=== PATIENT | male | born 1960 | race Two or more races ===

== ENCOUNTER 2025-01-05 15:43 | Emergency (ER) | payer MEDICAID, SELFPAY ==
[2025-01-05 15:44] VITALS: BMI 28.7
--- NOTE | 2025-01-05 15:48 | EKG_ITS ---
[facility] Test Date: 2025-01-05 Pat Name: KUN NIX Department: Room: - Gender: Male [employer] Person: : 1960 Requested By: Syd Headley (JONATHAN) Order Number: [id number] Reading MD: Syd Headley ([employer]) Measurements Intervals [place] Rate: 52 P: 9 NJ: 200 QRS: 19 QRSD: 97 T: 48 QT: 416 QTc: 387 Interpretive Statements SINUS BRADYCARDIA No previous ECG available for comparison /store/S0/[id number].pdf
[2025-01-05 15:53] VITALS: BP 128/71; PULSE 57; RESP 18; TEMP 36.5; O2SAT 97
--- NOTE | 2025-01-05 15:59 | XR_ITS ---
Examination: PA lateral chest 2 views Technique: Upright PA lateral chest 2 views Date and time: January 05, 2025 1607 hrs. Indications: Weakness dizziness today. Findings: Normal heart size. No aspiration pneumonia. Moderate osteopenia Impression: Negative for aspiration pneumonia
--- NOTE | 2025-01-05 15:59 | XR_ITS ---
Examination: CT brain head without contrast. 2-D sagittal coronal reconstructions Date and time of exam:January 05, 2025 1655 hrs. Indications: Headache nausea vomiting lethargy today CTDI: vol (mGy):51.7 DLP: (mGycm):1060 Technique: Multiple CT axial sections of the brain have been obtained, 5 mm slice thickness. Contrast has not been administered. 2-D sagittal, coronal reconstructions have been obtained Low dose protocols were performed. One or more of the following dose reduction techniques were used; automated exposure control, adjustment of the mA and/or KV according to patient size, use of iterative reconstruction technique. Findings: No significant ventricular enlargement. Intra-axial or extra-axial hemorrhage density is not seen. No mass effect or midline shift Basal cisterns are not remarkable. Fourth ventricle is midline. Cranial vault intact. Impression: Negative for acute hemorrhage, mass effect or midline shift Advise clinical correlation and follow-up accordingly
--- NOTE | 2025-01-05 16:09 | PD.EDRME ---
Rapid Medical Screening Exam RME Arrival date/time: 01/05/25 15:43 64-year-old male presents to the emergency department today for complaints of dizziness nausea and abdominal pain today Chief Complaint: Dizziness Vital signs: Vital Signs Temperature 97.7 F 01/05/25 15:53 Pulse Rate 57 L 01/05/25 15:53 Respiratory Rate 18 01/05/25 15:53 Blood Pressure 128/71 01/05/25 15:53 Pulse Oximetry (%) 97 01/05/25 15:53 Oxygen Delivery Method Room Air 01/05/25 15:53
[2025-01-05 16:37] LABS: Basophils # (Auto) 0.1 Thou/mm3 (0.0-0.2); Basophils % (Auto) 1 % (0-2.5); Eosinophils # (Auto) 0.2 Thou/mm3 (0.0-0.5); Eosinophils % (Auto) 2 % (0-10); Hematocrit 39.2 % (41.0-53.0); Hemoglobin 13.8 g/dL (13.5-16.0); Immature Granulocytes % (Auto) 1 % (0-0); Immature Granulocytes Auto 0.09 Thou/mm3 (0.00-0.00); Lymphocytes # (Auto) 2.4 Thou/mm3 (1.0-4.8); Lymphocytes % (Auto) 29 % (10-50); Mean Corpuscular HGB Conc 35.2 g/dl (31.0-37.0); Mean Corpuscular Hemoglobin 31.2 pg (25.0-35.0); Mean Corpuscular Volume 89 fL (80-100); Monocytes # (Auto) 0.6 Thou/mm3 (0.0-0.8); Monocytes % (Auto) 8 % (0-12); Neutrophils % (Auto) 60 % (37-80); Nucleated Red Blood Cell % 0 /100 WBC (0); Platelet Count 226 Thou/mm3 (140-440); RDW Standard Deviation 43.3 fL (35.1-43.9); Red Blood Count 4.42 Miln/mm3 (4.50-5.90); White Blood Count 8.3 Thou/mm3 (3.8-10.6)
[2025-01-05 16:45] LABS: Collection Type, Urine Clean Catch; Squamous Epithelial Cell,Urine 0 /hpf (0-5)
[2025-01-05 16:58] LABS: Amphetamine/Methamp Scrn,U Negative (Negative); Barbiturate Screen,Urine Negative (Negative); Benzodiazepines Screen,Urine Negative (Negative); Benzoylecgonine Screen, Ur Negative (Negative); Fentanyl Screen,Urine Negative (Negative); Opiate Screen,Urine Negative (Negative); THC Screen,Urine Negative (Negative)
[2025-01-05 17:02] LABS: Amorphous Crystals,Urine Present (Absent); Bilirubin,Urine Negative (Negative); Blood,Urine Negative (Negative); Color,Urine Lt-Yellow (Lt Yel-Yel); Glucose, Urine Negative (Negative); Ketones,Urine Negative (Negative); Leukocyte Esterase,Urine Positive (Negative); Nitrite,Urine Negative (Negative); Protein,Urine Negative (Neg - Trace); RBC,Urine 1 /hpf (0-3); Specific Gravity,Urine 1.019 (1.001-1.035); Urobilinogen,Urine Negative mg/dL (0.0-1.0); WBC,Urine 5 /hpf (0-5)
[2025-01-05 17:05] LABS: Clarity,Urine Hazy (Clear/Hazy)
[2025-01-05 17:06] LABS: Partial Thromboplastin Time 26.5 Seconds (22.0-36.0); Prothrombin Time 11.2 Seconds (9.0-12.2)
[2025-01-05 17:07] LABS: B-Type Natriuretic Peptide 40 pg/mL (0-100)
[2025-01-05 17:09] LABS: Alanine Aminotransferase 16 U/L (10-49); Albumin, Serum 4.6 gm/dL (3.4-4.8); Albumin/Globulin Ratio 1.8 (1.2-2.2); Alkaline Phosphatase 92 U/L (46-116); Anion Gap 10 (7-16); BUN/Creatinine Ratio 16 Ratio (12-20); Blood Urea Nitrogen 13 mg/dL (9-23); Calcium 9.3 mg/dL (8.3-10.6); Calcium (Corrected) 9.3 mg/dL (8.5-10.1); Carbon Dioxide 25.8 mMol/L (20.0-31.0); Chloride 107 mMol/L (98-107); Creatinine (Component) 0.8 mg/dL (0.6-1.3); Estimated Creatinine Clearance 95.6 mL/min (>60); Globulin 2.5 gm/dL (2.3-3.5); Glucose 91 mg/dL (74-106); Magnesium 2.3 mg/dL (1.6-2.6); Osmolality,Calculated 285 (275-295); Potassium 3.9 mMol/L (3.4-5.1); Sodium 143 mMol/L (136-145); Total Protein 7.1 gm/dL (5.7-8.2); Troponin I < 0.002 ng/mL (0.0-0.045); eGFR > 60 See Note
--- NOTE | 2025-01-05 18:34 | PD.EDDIZZY ---
ED Dizzyness RME/HPI General Chief Complaint: Dizziness Stated Complaint: DIZZY/WEAK/ABD PAIN Time Seen by Provider: 01/05/25 18:13 Arrival date/time: 01/05/25 15:43 RME / HPI RME / HPI Narrative: 01/05/25 15:43 64-year-old male presents to the emergency department today for complaints of dizziness nausea and abdominal pain today This section includes all my notes and documentations, including HPI, PE, and ED course. Christiano Couch MD HPI: 64 y/o male here with dizziness x approximately 10 hours. Denies room spinning, but describes moving sensation as closer inebriation and being seasick. No chest pain. No other complaints. ROS: All negative except as documented in HPI. Physical Exam: General: Alert and oriented. No acute distress when remaining still. Eyes: Conjunctivae and lids clear. ENT: No nasal congestion. Neck: Supple. Heart: RRR. Lungs: No respiratory distress. Good air movement. No rhonchi, wheezing, rales. Skin: Warm and dry. Neuro: Alert and oriented X 3. I reviewed all diagnostic test results: My interpretation of the EKG is: Sinus rhythm with no acute ST?T changes. My interpretation of the chest x-ray is: NAD. My review of the Head/Brain CT report is: NAD. Blood tests and urine tests unremarkable. At this point, diagnoses include: Vertigo Treatment here included: Antivert, Zofran, Transderm-Scop Patch. Recommended outpatient care. Based on my best medical judgment, made decision no further evaluation or treatment indicated at this time. Patient understands and agrees to the discharge instructions customized and printed, see below. Discharge instructions from Dr. Couch: ? After extensive evaluation, there is no life-threatening condition.? Such as stroke or brain tumor or heart attack. --You have good blood pressure. -- Your severe symptoms are due to vertigo.? This is an inner ear problem that makes you feel like you are drunk or seasick.? See attached handout. -- Use scopolamine patch and/or meclizine for your severe symptoms. -- And Zofran for nausea/vomiting.? And increase oral fluid to prevent dehydration.? Maintain clear urine.? If dark or yellow, increase oral fluid. -- And do everything very slowly.? Including moving your head.? And when you sit up or stand up, wait a minute before you progress.? -- See your private doctor on 01/07/2025. If needed, ask to help you get more care not available here in the ER.? Such as MRI imaging of your brain, physical therapy, table tilt test, and referrals to see specialists (such as neurologist and ENT specialist). -- Seek immediate medical care with worsening or with any concerns. Christiano Couch MD Related Data Home Medications ?Medication ?Instructions ?Recorded ?Confirmed No Known Home Medications 06/27/18 06/27/18 Previous Rx's ?Medication ?Instructions ?Recorded meclizine 25 mg tablet 25 mg PO BID PRN dizziness #20 tabs 01/05/25 ondansetron 4 mg disintegrating 4 mg PO TID PRN nausea and 01/05/25 tablet vomiting 30 days #10 tabs scopolamine base 1 mg over 3 days 1 mg topical .q72 hours PRN 01/05/25 transdermal patch (Transderm-Scop) dizziness or vertigo #4 ea Allergies Allergy/AdvReac Type Severity Reaction Status Date / Time No Known Allergies Allergy Verified 01/05/25 15:46 Review of Systems Review of Systems Systems Reviewed: All systems reviewed, normal except as documented Past Medical History Social History SMOKING STATUS: Never smoker ED Exam Narrative Physical exam: Refer to HPI above Course Course Course Narrative: CXR is ordered for determining the etiology of shortness of breath. Quality Measures none Orders Category Date Time Status EKG (ED ONLY) *Do not use* NOW Care 01/05/25 15:[address] head/brain wo con Stat Exams 01/05/25 15:59 Completed EKG (ED Only) Stat Exams 01/05/25 15:48 Draft XR chest 2V Stat Exams 01/05/25 15:59 Completed B-Type Natriuretic Peptide Stat Lab 01/05/25 16:22 Completed CBC Stat Lab 01/05/25 16:22 Completed Comprehensive Metabolic Panel Stat Lab 01/05/25 16:22 Completed Drug Screen,Urine Stat Lab 01/05/25 16:36 Completed Magnesium Stat Lab 01/05/25 16:22 Completed Partial Thromboplastin Time Stat Lab 01/05/25 16:22 Completed Prothrombin Time with INR Stat Lab 01/05/25 16:22 Completed Troponin I Stat Lab 01/05/25 16:22 Completed Urinalysis Stat Lab 01/05/25 16:34 Completed Meclizine HCl [Antivert] Med 01/05/25 18:35 Discontinued 25 mg PO X1 ONE Ondansetron Odt [Zofran Odt] Med 01/05/25 18:35 Discontinued 4 mg PO X1 ONE Scopolamine [Transderm-Scop Patch] Med 01/05/25 18:35 Discontinued 1 mg TOP X1 ONE Vital Signs Vital signs: Vital Signs Temperature 97.7 F 01/05/25 15:53 Pulse Rate 57 L 01/05/25 15:53 Respiratory Rate 18 01/05/25 15:53 Blood Pressure 128/71 01/05/25 15:53 Pulse Oximetry (%) 97 01/05/25 15:53 Oxygen Delivery Method Room Air 01/05/25 15:53 Dizziness MDM Narrative MDM Narrative:: Scribe Attestation: I, Anne Marie Dong, am scribing for and in the presence of Dr. Couch. Provider Notation: Although this document has been carefully reviewed, there may still be some phonetic and other typographical errors.? These errors are purely grammatical due to imperfections in the software program and should not be construed in any way to? compromise the substance of the patient's medical care during this visit. 64 y/o male presents to ED c/o dizziness x approximately 10 hours. Denies room spinning, but describes sensation as closer inebriation. No other complaints. Patient data External records reviewed:: [facility] previous records (No recent ED records available for review) Clinical information provided by:: patient Social determinants that could affect healthcare access:: none Patient has the following chronic illnesses:: None reported How is presenting disease/condition affected by chronic disease/condition?: no chronic disease Evaluation data The following diagnostics were reviewed and interpreted by me:: lab results and radiology exam(s) Lab and/or radiology exams considered but not ordered:: None Interpretation Summary: I reviewed all diagnostic test results: My interpretation of the EKG is: Sinus rhythm with no acute ST?T changes. My interpretation of the chest x-ray is: NAD. My review of the Head/Brain CT report is: NAD. Blood tests and urine tests unremarkable. Medications / Prescriptions Medications or Prescriptions considered but not ordered:: None Medication administrations:: Medication Administration History Discontinued Medications Meclizine HCl (Meclizine Hcl 25 Mg Tablet) 25 mg PO X1 ONE Stop: 01/05/25 18:36 Ondansetron HCl (Ondansetron Odt 4 Mg Tabrap) 4 mg PO X1 ONE; Protocol Stop: 01/05/25 18:36 Scopolamine (Scopolamine 1 Mg Tdsy) 1 mg TOP X1 ONE Stop: 01/05/25 18:36 Antivert, Zofran, Transderm-Scop Patch. Consultations Consultation(s) initiated? (list below): No Diagnosis Dizziness Differential Diagnosis: adverse reaction to drug, benign paroxysmal positional vertigo, orthostatic hypotension, vertebral basilar insufficiency, cerebrovascular accident, acute vestibular neuronitis and transient cerebral ischemia Most likely diagnosis given after review of the tests above:: Vertigo Admission Indicated Admission indicated?: not indicated Explain why admission is indicated or not indicated:: With no serious illness, there was no indication for admission. Admission Request Was there a request for admission?: No Disposition Plan Disposition Plan: Discharge Discharge Attestation Discharge Attestation: The patient and all family members were given an opportunity to ask questions and understood the discharge instructions. Discharge instructions specifically effects, indications for sooner follow up or return to the emergency department, and the expected course of current diagnosis. Patient condition: Stable Discharge Plan Plan Patient Disposition: HOME (Self Care) Prescriptions/Referrals Prescriptions/Med Rec: New meclizine 25 mg tablet 25 mg PO BID PRN (Reason: dizziness) Qty: 20 0RF scopolamine base [Transderm-Scop] 1 mg over 3 days patch 3 day 1 mg topical .q72 hours PRN (Reason: dizziness or vertigo) Qty: 4 0RF ondansetron 4 mg tablet,disintegrating 4 mg PO TID PRN (Reason: nausea and vomiting) 30 Days Qty: 10 0RF No Action No Known Home Medications Referrals: No Primary/Family,Physician [Primary Care Provider] - In 1 week Problem List Clinical Impression: Vertigo Patient/Caregiver Discharge Instructions Discharge Activity: activity as tolerated Education Materials: ED Dizziness, Uncertain Cause Additional Instructions: Discharge instructions from Dr. Couch: ? After extensive evaluation, there is no life-threatening condition.? Such as stroke or brain tumor or heart attack. --You have good blood pressure. -- Your severe symptoms are due to vertigo.? This is an inner ear problem that makes you feel like you are drunk or seasick.? See attached handout. -- Use scopolamine patch and/or meclizine for your severe symptoms. -- And Zofran for nausea/vomiting.? And increase oral fluid to prevent dehydration.? Maintain clear urine.? If dark or yellow, increase oral fluid. -- And do everything very slowly.? Including moving your head.? And when you sit up or stand up, wait a minute before you progress.? -- See your private doctor on 01/07/2025. If needed, ask to help you get more care not available here in the ER.? Such as MRI imaging of your brain, physical therapy, table tilt test, and referrals to see specialists (such as neurologist and ENT specialist). -- Seek immediate medical care with worsening or with any concerns. Instrucciones de edgardo del Dr. Couch: ? Tras soraya evaluaci?n exhaustiva, no se goss detectado ninguna afecci?n potencialmente mortal, abel un derrame cerebral, un tumor cerebral o un ataque card?aco. --Tiene buena presi?n arterial. -- Brinda s?ntomas graves se deben al v?rtigo. Se trata de un problema del o?do interno que le produce soraya sensaci?n de ebriedad o mareo. Consulte el folleto adjunto. -- Use un parche de escopolamina o meclizina para los s?ntomas graves. -- Y Zofran para las n?useas y los v?mitos. Aumente la ingesta de l?quidos por v?a oral para prevenir la deshidrataci?n. Mantenga la orina zora. Si es oscura o amarilla, aumente la ingesta de l?quidos por v?a oral. -- Bossman todo muy lentamente, incluyendo gum remover la eleazar. Al incorporarse o levantarse, espere un minuto antes de continuar. -- Consulte a best m?dico particular el 04/06/2025. Si es necesario, solicite ayuda para obtener m?s atenci?n que no est? disponible en urgencias. Brandon resonancias magn?fer cerebrales, fisioterapia, prueba de inclinaci?n de la nova y derivaciones a especialistas (abel neur?logos y otorrinolaring?logos). -- Busque atenci?n m?dica inmediata si presenta empeoramiento o cualquier inquietud. Print Language: Yakut Stand Alone Forms: Nel Award Info., Patient Portal Info Letter
[2025-01-05] MEDS: ONDANSETRON ODT 4 MG TABRAP PO (18:47)
[2025-01-05] MEDS: MECLIZINE HCL 25 MG TABLET PO (18:47)
[2025-01-05] MEDS: SCOPOLAMINE 1 MG TDSY TOP (18:50)
== END 2025-01-05 18:55 | disposition home or self-care (01) ==
PROVIDERS: Nurse Practitioner Primary Care; Emergency Provider Emergency Medicine
DX: R42 Dizziness and giddiness (principal); R53.1 Weakness; R51.9 Headache, unspecified; R11.2 Nausea with vomiting, unspecified; R53.83 Other fatigue; R00.1 Bradycardia, unspecified
CPT/HCPCS: 36415; 70450; 71046; 80053; 80307; 81001; 83735; 83880; 84484; 85025; 85610; 85730; 93005; 99283; Q0162; A9270